=== PATIENT | male | born 1960 | race Caucasian/White ===

== ENCOUNTER → 2017-07-29 | Outpatient (CLI) | payer MEDICARE ==
[~2017-07-29] MED LIST: METH500T3 PO; MORP20SO2 PO; NEUR100C PO; OXYC40TA20 PO; OXYC80 PO; PHEN60TA PO; ZYRT10TA12 PO
[2017-07-29 15:07] LABS: ALKALINE PHOSPHATASE 154 U/L (45-117); ALT (GPT) 25 U/L (12-78); GLUCOSE,RANDOM 135 MG/DL (74-106); TOTAL BILIRUBIN ADULT 0.1 MG/DL (0.2-1.0); TOTAL PROTEIN 7.3 GM/DL (6.4-8.2)
[2017-07-29 15:08] LABS: ALBUMIN 4.1 GM/DL (3.4-5.0); AST (GOT) 17 U/L (15-37); BICARBONATE 27.2 MEQ/L (21.0-32.0); BLOOD UREA NITROGEN 3 MG/DL (7-18); CALCIUM 8.4 MG/DL (8.5-10.1); CHLORIDE 99 MEQ/L (98-107); CREATININE 0.94 MG/DL (0.60-1.30); GLOMERULAR FILTRATION RATE 83 ML/MIN (>89); SODIUM (NA) 136 MEQ/L (136-145)
== END ==
LOC: PLAB 12:30
PROVIDERS: ATTEND Psychiatry & Neurology Neurology
DX: G40.909 Epilepsy, unspecified, not intractable, without status epilepticus (principal); Z51.81 Encounter for therapeutic drug level monitoring
CPT/HCPCS: 36415; 80053; 80184

== ENCOUNTER → 2017-10-08 | Outpatient (CLI) | payer MEDICARE ==
[2017-10-08 18:28] LABS: ALBUMIN 4.3 GM/DL (3.4-5.0); AST (GOT) 15 U/L (15-37); BICARBONATE 29.4 MEQ/L (21.0-32.0); BLOOD UREA NITROGEN 9 MG/DL (7-18); CALCIUM 8.7 MG/DL (8.5-10.1); CHLORIDE 96 MEQ/L (98-107); CREATININE 0.88 MG/DL (0.60-1.30); GLOMERULAR FILTRATION RATE 90 ML/MIN (>89); GLUCOSE,RANDOM 102 MG/DL (74-106); SODIUM (NA) 135 MEQ/L (136-145)
[2017-10-08 18:31] LABS: ALKALINE PHOSPHATASE 131 U/L (45-117); ALT (GPT) 29 U/L (12-78); TOTAL BILIRUBIN ADULT 0.5 MG/DL (0.2-1.0); TOTAL PROTEIN 7.5 GM/DL (6.4-8.2)
[2017-10-08 19:00] LABS: HEMOGLOBIN A1C 6.3 % (4.3-6.0)
== END ==
LOC: PLAB 13:05
PROVIDERS: ATTEND Family Medicine
DX: E11.65 Type 2 diabetes mellitus with hyperglycemia (principal)
CPT/HCPCS: 36415; 80053; 83036

== ENCOUNTER 2018-03-12 05:36 | Inpatient (IN) ==
--- NOTE | 2018-03-11 17:30 | MH ---
cc: Frederick Lopez MD DATE OF ADMISSION: 03/12/2018 HISTORY OF PRESENT ILLNESS: A 57-year-old gentleman with significant chronic sinusitis, facial pain, pressure, headache, refractory to medical therapy, for sinus surgery. PAST MEDICAL HISTORY: Notable for chronic pain, seizure disorder, hypertension. MEDICATIONS: Included in the chart. ALLERGIES: NO KNOWN DRUG ALLERGIES. SOCIAL HISTORY: Unremarkable. FAMILY HISTORY: Unremarkable. REVIEW OF SYSTEMS: Unremarkable. PHYSICAL EXAMINATION: GENERAL: Well-appearing patient, no acute distress noted. HEENT: Reveals septal deviation, turbinate hypertrophy, mucopurulent secretions. Oral cavity clear. NECK: Soft, supple. No masses. LUNGS: Clear. HEART: Regular rate and rhythm. ABDOMEN: Soft and nontender. EXTREMITIES: Without cyanosis, clubbing, or edema. NEUROLOGIC: Alert, oriented. Nonfocal neurologic exam. IMPRESSION: A patient with chronic sinusitis and nasal obstruction, for nasal sinus surgery. Instructed method of surgery and possible complications, including anesthetic complication, cardiac difficulty, pulmonary difficulty, stroke, or even ; surgical complications, bleeding, infection, injury to the orbit, including blindness and diplopia, injury to brain, including CSF leak, meningitis, brain abscess, or even , in addition to septal perforation, recurrent epistaxis, decreased sense of smell. The patient appeared to agree, accepted and understood the above-mentioned risks. In addition, no guarantees or warranties of outcome were given. We will therefore proceed with surgery. Frederick Lopez MD [facility]/mahi , 04:22 PM , 04:28 PM
[2018-03-12] MEDS ORDERED: Metoprolol Tartrate 25 MG Tablet PO ONE (05:59)
[2018-03-12] MEDS ORDERED: Chlorhexidine Gluconate 2% 1 Pack (2 Cloths) TOPICAL ONE (05:59)
[2018-03-12] MEDS ORDERED: Sodium Chlor 0.9% Inj 500 ML IV.SIG SCH (06:00)
[2018-03-12] MEDS ORDERED: Lidocaine 1%/Epinephrine 1:100,000 Inj 30 ML Vial ONE (06:59)
[2018-03-12] MEDS ORDERED: Sugammadex Inj 200 MG/2 ML Vial IV.PUSH ONE (07:07)
[2018-03-12] MEDS ORDERED: Phenylephrine/NS 1000 MCG/10ML Syringe IV.PUSH ONE (07:30)
[2018-03-12] MEDS ORDERED: Lidocaine PF 1% Inj 5 ML Syringe OTHER ONE (07:30)
[2018-03-12] MEDS ORDERED: fentaNYL Citrate Inj 100 MCG/2 ML Ampul ONE (08:23)
[2018-03-12] MEDS ORDERED: *morphine SULFATE 4 MG/ML PERIprocedure ONLY ONE ×2 (08:45→09:02)
--- NOTE | 2018-03-12 10:55 | MP ---
cc: Frederick Lopez MD DATE OF OPERATION: 03/12/2018 POSTOPERATIVE DIAGNOSES: 1. Chronic sinusitis. 2. Nasal obstruction. 3. Turbinate hypertrophy. PROCEDURE: Open septal reconstruction, left endoscopic frontal sinusotomy, right endoscopic frontal sinusotomy, left endoscopic anterior to posterior ethmoidectomy, right endoscopic anterior to posterior ethmoidectomy, left endoscopic maxillary antrostomy with removal of tissue, right endoscopic maxillary antrostomy with removal of tissue, left and right submucous resection of inferior turbinates. ANESTHESIA: General. ESTIMATED BLOOD LOSS: Less than 50 mL COMPLICATIONS: None. OPERATING SURGEON: Dr. Lopez. OPERATION FOLLOWS: Prepped and draped in the usual fashion; 1% Xylocaine with 1:100,000 epinephrine injected into the nasal septum, inferior turbinates, and middle meatus bilaterally; 1:1000 adrenaline-soaked pledget was placed and then removed. Once this was achieved, attention was turned to the right middle meatus whereby under endoscopic visualization, an uncinectomy was performed with the microdebrider. Natural antrostomy identified, enlarged and polypoid tissue removed from it. Next, an anterior posterior ethmoidectomy performed with microdebrider and frontal sinus recess dissection performed as well, taking care not to injure the orbit or cribriform plate. Significant polypoid tissue was removed from the ethmoid and the frontal sinus recess. A Telfa splint was placed in the right middle meatus. In a similar fashion on the opposite side, under endoscopic visualization, an uncinectomy was performed anterior, posterior ethmoidectomy, natural antrostomy identified, enlarged and polypoid tissue removed from it, as well as frontal sinus recess dissection with microdebrider under endoscopic visualization. No injury to the cribriform plate or lamina papyracea. Telfa splint placed in left middle meatus. Mucoperichondrial incision then made left septum, mucoperichondrial flap elevated on both sides. The cartilage and bone were isolated and removed, improving the nasal airway and reducing the nasal fracture. The mucoperichondrial flap was reapproximated and using the Coblator probe with a power level 4, multiple insertions were made in the inferior turbinate on the left and the inferior turbinate on the right, significantly reducing the bulk preserving the mucosa and improving nasal airway. Nose with suction, no packing. The patient tolerated the procedure well. MD ALAN Hall/son , 10:17 AM , 10:25 AM
[2018-03-12] MEDS ORDERED: Acetaminophen 325 MG Tablet PO PRN (14:40)
--- NOTE | 2018-03-12 14:49 | P.CON ---
History of Present Illness Reason for Consult: Medical management Primary Care Provider: Kassy Andino DO Chief Complaint: Chronic sinusitis status post open septal reconstruction History of Present Illness: 57-year-old man with a past medical history of diabetes type 2, chronic sinusitis who was taken to the operating room today by ENT for open septal reconstruction. Patient is seen postoperatively in his room, and denies any chest pain or shortness of breath.[facility] was consulted for medical management Review of Systems All other systems reviewed negative except as stated in HPI PMFSH - History History Provided By: Patient - Medical History Medical History: Medical History (Last Reviewed 03/12/18 @ 06:36 by Shalini Sims RN) Arthritis COPD (chronic obstructive pulmonary disease) Complex regional pain syndrome Cough Diabetes Essential hypertension Glycosuria Hematuria Herniated disc History of traumatic brain injury Hyperlipemia Hypothyroidism MDRO (multiple drug resistant organisms) resistance Migraine Mild asthma Shortness of breath Spinal stenosis Testicular hypofunction - Surgical History Surgical History: Surgical History (Last Reviewed 03/12/18 @ 06:36 by Shalini Sims RN) History of appendectomy History of cervical spinal surgery History of dilation of urethra History of elbow surgery History of foot surgery History of inguinal hernia repair History of lumbar laminectomy History of spinal fusion History of testicular surgery - Tobacco History Second Hand Smoke Exposure: No Smoking Status: Never smoker - Alcohol History How Often Do You Have a Drink Containing Alcohol: Never - Substance Use History Substance History: No History of Abuse - Travel History Recent Travel in the [place] Within the Last 8 Weeks: No Recent Travel Out of the Country Within the Last 8 Weeks: No - Immunization History Tetanus Immunization: <5 Years Hx Influenza Vaccine This Season: No Medications and Allergies Active Medications: Active Medications Acetaminophen (Tylenol) 650 mg PO Q4H PRN PRN Reason: HEADACHE OR TEMP > 101 F Hydrocodone Bitart/Acetaminophen ([place] 7.5/325) 1 tab PO Q3H PRN PRN Reason: PAIN 1-5 Budesonide/Formoterol Fumarate (Symbicort 160/4.5 Mcg Inh) 2 puff INH Q12H [facility] Carisoprodol (Soma) 350 mg PO BID [facility] Cephalexin Monohydrate (Keflex) 500 mg PO BID [facility] Cetirizine HCl (Zyrtec) 10 mg PO DAILY [facility] Gabapentin (Neurontin) 600 mg PO BID [facility] Lactated Ringer's (Lr 1000 Ml Inj) 1,000 mls @ 30 mls/hr IV.SIG .Q24H [facility] Stop: 03/13/18 05:59 Last Admin: 03/12/18 06:15 Dose: 30 mls/hr Sodium Chloride (Ns Inj) 500 mls @ 30 mls/hr IV.SIG .Q10H [facility] Levothyroxine Sodium (Synthroid) 50 mcg PO DAILY@0600 [facility] Metformin HCl (Glucophage) 500 mg PO BID [facility] Metoprolol Succinate (Toprol Xl) 100 mg PO DAILY [facility] Miscellaneous Information ([facility]) 1 each OTHER UNSCH PRN PRN Reason: SEE LABEL COMMENTS Stop: 03/13/18 08:35 Montelukast Sodium (Singulair) 10 mg PO DAILY@1800 [facility] Morphine Sulfate (Morphine Inj) 2 mg IV.PUSH Q1H PRN PRN Reason: PAIN 6-10 Non-Formulary Medication (Oxycodone [Oxycodone]) 30 mg PO Q6H [facility] Ondansetron HCl (Zofran Inj) 4 mg IV.PUSH Q6H PRN PRN Reason: NAUSEA OR VOMITING Phenobarbital (Phenobarbital) 64.8 mg PO BID [facility] Allergies Allergy/AdvReac Type Severity Reaction Status Date / Time codeine Allergy Intermediate ITCH/UPSET Verified 03/12/18 06:23 STOMACH phenytoin [From Dilantin] Allergy Hives Verified 03/12/18 06:23 acetaminophen AdvReac Severe UPSET Verified 03/12/18 06:23 STOMACH propoxyphene AdvReac Severe UPSET Verified 03/12/18 06:23 STOMACH Home Medications Medication Instructions Recorded Confirmed Type albuterol sulfate [ProAir HFA] 1 puff INHALATION Q6H PRN 03/10/18 03/12/18 History budesonide-formoterol [Symbicort] 2 puff INHALATION Q12H 03/10/18 03/12/18 History carisoprodol 350 mg PO BID 03/10/18 03/12/18 History gabapentin [Neurontin] 600 mg PO BID 03/10/18 03/12/18 History levothyroxine 50 mcg PO DAILY 03/10/18 03/12/18 History metformin 500 mg PO BID 03/10/18 03/12/18 History metoprolol succinate 100 mg PO DAILY 03/10/18 03/12/18 History montelukast [Singulair] 10 mg PO QPM 03/10/18 03/12/18 History oxycodone 30 mg PO Q6H 03/10/18 03/12/18 History oxycodone [OxyContin] 80 mg PO TID 03/10/18 03/12/18 History phenobarbital 64.8 mg PO BID 03/10/18 03/12/18 History sumatriptan succinate 100 mg PO Q2-4H PRN 03/10/18 03/12/18 History testosterone cypionate 200 mg IM Q4W 03/10/18 03/12/18 History Sudafed 30 mg PO DIRECTED PRN 03/12/18 03/12/18 History cephalexin [Keflex] 500 mg PO BID 03/12/18 03/12/18 History cetirizine [Zyrtec] 10 mg PO DAILY 03/12/18 03/12/18 History Physical Exam Vital signs: Vital Signs 03/12/18 06:05 03/12/18 08:30 03/12/18 08:45 Temperature 98.6 F Pulse Rate 86 71 74 Respiratory Rate 20 15 15 Blood Pressure 142/90 H 113/71 107/72 Pulse Oximetry 97 97 97 03/12/18 09:00 03/12/18 09:15 03/12/18 10:15 Temperature Pulse Rate 79 79 70 Respiratory Rate 17 17 17 Blood Pressure 119/63 129/60 103/67 Pulse Oximetry 92 L 92 L 93 L 03/12/18 10:45 03/12/18 11:15 03/12/18 11:50 Temperature 98.2 F Pulse Rate 63 69 69 Respiratory Rate 15 18 20 Blood Pressure 93/46 L 100/60 93/62 L Pulse Oximetry 96 96 93 L 03/12/18 12:00 Temperature 98 F Pulse Rate 74 Respiratory Rate 20 Blood Pressure 110/68 Pulse Oximetry 90 L Intake & Output 03/11/18 03/12/18 03/12/18 18:59 06:59 18:59 Intake Total 700 / 700 Balance 700 / 700 Weight 107 kg 109.1 kg Intake: Anesthesia Amount 700 / 700 Other: Date of Last Bowel Movement 03/11/18 Weight On Admission 107 kg Narrative: GENERAL: SKIN: Warm and dry. HEAD: Atraumatic. Normocephalic. EYES: Pupils equal and round. No scleral icterus. No injection or drainage. ENT: dressing over his nose. Mucous membranes pink and moist. NECK: Trachea midline. No JVD. CARDIOVASCULAR: Regular rate and rhythm. RESPIRATORY: No accessory muscle use. Clear to auscultation. Breath sounds equal bilaterally. GASTROINTESTINAL: Abdomen soft, non-tender, nondistended. Hepatic and splenic margins not palpable. MUSCULOSKELETAL: Extremities without clubbing, cyanosis, or edema. No obvious deformities. NEUROLOGICAL: Awake and alert. No obvious cranial nerve deficits. Motor grossly within normal limits. Five out of 5 muscle strength in the arms and legs. Normal speech. PSYCHIATRIC: Appropriate mood and affect; insight and judgment normal. Assessment and Plan - Plan 7-year-old man with Chronic sinusitis Status post open septal reconstruction Management per ENT History of diabetes type 2 Resume metformin Hypothyroidism Resume Synthroid Other chronic medical conditions including chronic pain syndrome Resume outpatient medications DVT prophylaxis: Bilateral SCDs Thank you for this consultation
[2018-03-12] MEDS: Budesonide-Formoterol 160/4.5 MCG 6 GM Inhaler INH SCH (15:30)
[2018-03-12] MEDS ORDERED: Montelukast 10 MG Tablet PO SCH (18:00)
[2018-03-12] MEDS: Morphine Sulfate Inj 2 MG/ML Vial IV.PUSH PRN ×2 (18:16→21:42)
[2018-03-12] MEDS: Gabapentin 400 MG Capsule PO SCH (20:34)
[2018-03-12] MEDS: Carisoprodol 350 MG Tablet PO SCH (20:37)
[2018-03-13] MEDS: Morphine Sulfate Inj 2 MG/ML Vial IV.PUSH PRN ×2 (00:36→07:47)
[2018-03-13] MEDS ORDERED: Levothyroxine 50 MCG Tablet PO SCH (06:00)
[2018-03-13] MEDS: Budesonide-Formoterol 160/4.5 MCG 6 GM Inhaler INH SCH (08:24)
[2018-03-13] MEDS: Carisoprodol 350 MG Tablet PO SCH (09:05)
[2018-03-13] MEDS: Gabapentin 400 MG Capsule PO SCH (09:06)
--- NOTE | 2018-03-13 09:20 | P.PN ---
Subjective Interval history: Follow-up for chronic sinusitis, nasal obstruction and turbinate hypertrophy. Patient is a status post open septal reconstruction by ENT. She is currently doing well. He was discharged by ENT. No fever or chills. Patient can be seen by ENT physician in their clinic either today or tomorrow. Physical Exam Vital signs: Vital Signs 03/12/18 10:15 03/12/18 10:45 03/12/18 11:15 Temperature Pulse Rate 70 63 69 Respiratory Rate 17 15 18 Blood Pressure 103/67 93/46 L 100/60 Pulse Oximetry 93 L 96 96 03/12/18 11:50 03/12/18 12:00 03/12/18 16:15 Temperature 98.2 F 98 F 98.5 F Pulse Rate 69 74 71 Respiratory Rate 20 20 14 Blood Pressure 93/62 L 110/68 118/74 Pulse Oximetry 93 L 90 L 95 03/12/18 20:15 03/13/18 00:00 03/13/18 01:31 Temperature 98.4 F 98.4 F Pulse Rate 79 80 Respiratory Rate 14 18 17 Blood Pressure 132/73 132/79 Pulse Oximetry 95 93 L 03/13/18 04:00 03/13/18 08:00 Temperature 99.2 F 98.5 F Pulse Rate 77 76 Respiratory Rate 18 18 Blood Pressure 112/71 162/78 H Pulse Oximetry 95 95 Intake & Output 03/12/18 03/13/18 03/13/18 18:59 06:59 18:59 Intake Total 1060 / 1060 60 / 60 Output Total 0 / 0 Balance 1060 / 1060 60 / 60 Weight 109.1 kg 106 kg Intake: Oral 360 / 360 60 / 60 Anesthesia Amount 700 / 700 Output: Stool 0 / 0 Other: # Voids 1 3 Date of Last Bowel Movement 03/11/18 03/11/18 Narrative: GENERAL: Alert, NAD. SKIN: Warm and dry. HEAD: Atraumatic. Normocephalic. EYES: Pupils equal and round. No scleral icterus. No injection or drainage. ENT: dressing over his nose. Mucous membranes pink and moist. NECK: Trachea midline. No JVD. CARDIOVASCULAR: Regular rate and rhythm. RESPIRATORY: No accessory muscle use. Clear to auscultation. Breath sounds equal bilaterally. GASTROINTESTINAL: Abdomen soft, non-tender, nondistended. Hepatic and splenic margins not palpable. MUSCULOSKELETAL: Extremities without clubbing, cyanosis, or edema. No obvious deformities. NEUROLOGICAL: Awake and alert. No obvious cranial nerve deficits. Motor grossly within normal limits. Five out of 5 muscle strength in the arms and legs. Normal speech. PSYCHIATRIC: Appropriate mood and affect; insight and judgment normal. Results - Labs Laboratory Results - last 24 hr 03/13/18 09:04 POC Glucose 177 H Assessment and Plan - Plan Mr. Herndon is a pleasant 57-year-old male with a history of diabetes mellitus type 2, chronic sinusitis who underwent open septal construction by ENT on 2017. Chronic sinusitis Nasal obstruction -Status post open septal reconstruction. -Patient is on [place], acetaminophen for pain management. -ENT discharge patient with outpatient follow-up today or tomorrow. -Continue Keflex. Diabetes mellitus Hypothyroidism Continue home medications Metformin and Synthroid. Full code. SCDs. Patient is being discharged today.
[2018-03-13] MEDS ORDERED: Gabapentin 300 MG Capsule PO SCH (15:00)
== END 2018-03-13 12:17 | disposition home or self-care (01) | DRG 134 ==
LOC: HSDC 05:36 → N06 05:36 → OBSVTOIN 12:31
PROVIDERS: ADMIT Specialist; ATTEND Specialist
CPT/HCPCS: 82948; 82962; 94664; J0131; J0171; J2250; J2270; J2370; J2405; J2704; J3010; J7120